=== PATIENT | female | born 1950 | race Hispanic/Latino ===

== ENCOUNTER 2021-12-27 21:55 | Emergency (ER) | payer MEDICAID ==
[~2021-12-27] VITALS: Ht 160 cm; Wt 88.9 kg
[2021-12-27 22:33] VITALS: BP 135/76
[2021-12-27] MEDS ORDERED: BACI30OI6 TP (23:03)
[2021-12-27] MEDS: LIDOCAINE HCL 1% 20 ML VIAL ONE (23:03)
[2021-12-27] MEDS ORDERED: AMOX1TAB16 PO (23:03)
[2021-12-27] MEDS: TETANUS/DIPHTHERIA TOXOID [ADULT] 0.5 ML VIAL IM ONE (23:04)
== END 2021-12-28 00:15 | disposition home or self-care (01) ==
LOC: EDH 21:55
DX: S91.351A Open bite, right foot, initial encounter (principal); S91.352A Open bite, left foot, initial encounter; M06.9 Rheumatoid arthritis, unspecified; W54.0XXA Bitten by dog, initial encounter; Y93.89 Activity, other specified; Y92.89 Other specified places as the place of occurrence of the external cause; Y99.8 Other external cause status
CPT/HCPCS: 73630; 90471; 90714